=== PATIENT | male | born 1995 | race Native Hawaiian/Other Pacific Islander ===

== ENCOUNTER 2018-06-13 13:56 | Outpatient (CLI) | payer BC ==
[2018-06-13 14:33] LABS: PLATELET COUNT 216 K/uL (142-355)
[2018-06-13 15:04] LABS: POTASSIUM 3.9 mmol/L (3.6-5.2)
== END 2018-06-13 23:50 | disposition home or self-care (01) ==
LOC: LAB 13:56
PROVIDERS: Internal Medicine
DX: Z00.00 Encounter for general adult medical examination without abnormal findings (principal)
CPT/HCPCS: 36415; 80053; 80061; 81000; 84443; 85027